=== PATIENT | male | born 1955 | race Caucasian/White ===

== ENCOUNTER 2019-09-11 17:41 | Emergency (ER) | payer BC, MEDICARE ==
[~2019-09-11] VITALS: Ht 182.9 cm; Wt 122.5 kg
[~2019-09-11 17:41] MED LIST: ATORVASTATIN CA40 MG PO; DOXEPIN HCL50 MG PO; LINZESS PO; METOCLOPRAMIDE10 MG PO; PANTOPRAZOLE SO40 MG PO; PROBIOTIC & AC1 EACH PO; [UNRECOGNIZED DRUG - OTHER] PO; cholesterol med PO; sleep med PO
--- OUTSIDE RECORDS SUMMARY | 2019-09-11 17:45 | XMS REPORT ---
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 Allergies, Adverse Reactions, Alerts Allergy Name Allergy Type Status Severity Reaction(s) Onset Date Inactive Date Treating Clinician Comments No Known Drug Intolerances DA Active U 2010-04-26 00:00:00 Medications This patient has no known medications. Results Test Description Test Time Test Comments Text Results Atomic Results Result Comments - XR UGI W/AIR W/O KUB 2019-05-26 09:16:00 FAX: Amos Morrissey MD [phone] Dora: St: REG Name: MURALI HAINES [facility] : 1955 Age/S: 63/M [address] Unit #: [id number] Loc: [place] [address] Phys: Amos Duarte MD Acct: [id number] Dis Date: Status: REG CLI PHONE #: [phone] Exam Date: 05/26/2019 0850 FAX #: [phone] Reason: K21.0 REFLUX DISEASE EXAMS: CPT CODE: [id number] XR UGI W/AIR W/O KUB 70389 TECHNIQUE - XR UGI W/AIR W/O KUB . COMPARISON: CT abdomen pelvis 11/29/2018 HISTORY: 63 years Male K21.0 REFLUX DISEASE FINDINGS: Double contrast upper GI series is performed. Tertiary contractions of the esophagus. Small sliding hiatal hernia. Mild gastroesophageal reflux. No evidence of esophageal stricture. Stomach is unremarkable. Duodenal bulb is normal. Second and third portion of the duodenum is normal. IMPRESSION: Small sliding hiatal hernia. Mild gastroesophageal reflux. Tertiary contractions of the esophagus. at 0916 Reported and signed by: Delmer Vargas M.D. CC: Amos Duarte MD Technologist: Kat Sethi RT(R); STUDENT TECHNOLOGIST Trnscrd Date/Time/By: 05/26/2019 (6194) : By: Екатерина Orig Print D/T: S: 05/26/2019 (4132) PAGE 1 Signed Report
--- NOTE | 2019-09-11 18:40 | Diagnostic Imaging Report ---
RIGHT ANKLE - 3 Image(s) HISTORY: Fall COMPARISON: None available. FINDINGS: Bones: A 4 mm ossific density adjacent to the dorsal neck of the talus and a 2 mm ossific density adjacent to the dorsal head of the talus. No aggressive osseous lesion. Small plantar calcaneal and dorsal calcaneal enthesophytes. Joints: Minimal degenerative changes of the talonavicular joint. The ankle mortise is symmetric. Soft tissues: Mild lateral soft tissue swelling. IMPRESSION: 1. Small ossific densities adjacent to the dorsal talus could reflect age-indeterminate avulsion fractures, correlate for focal point tenderness. 2. Mild nonspecific lateral soft tissue swelling. Signed by: Dr. Adriano iJmenez D.O., M.M.M. on 09/11/2019 6:36 PM
--- NOTE | 2019-09-11 18:43 | Diagnostic Imaging Report ---
RIGHT TIBIA AND FIBULA-2 IMAGE(S) RIGHT FOOT-3 VIEWS HISTORY: Fall COMPARISON: Right ankle radiographs from the same day. FINDINGS: Artifacts partially limit evaluation of the proximal tibia and fibula. Bones: A 4 mm ossific density adjacent to the dorsal neck of the talus and a 2 mm ossific density adjacent to the dorsal head of the talus. No aggressive osseous lesion. Small plantar calcaneal and dorsal calcaneal enthesophytes. Probable chronic healed fracture deformity of the proximal tibial diaphysis. Joints: Minimal degenerative changes of the talonavicular joint. The ankle mortise is symmetric. Mild hallux valgus deformity with associated minimal degenerative changes. Soft tissues: Mild lateral soft tissue swelling. IMPRESSION: 1. Small ossific densities adjacent to the dorsal talus could reflect age-indeterminate avulsion fractures, correlate for focal point tenderness. 2. Mild nonspecific lateral ankle soft tissue swelling. Signed by: Dr. Adriano Jimenez D.O., M.M.M. on 09/11/2019 6:39 PM
[2019-09-11 19:54] VITALS: BP 149/92
== END 2019-09-11 20:00 | disposition home or self-care (01) ==
LOC: ER 17:41
DX: S92.014A Nondisplaced fracture of body of right calcaneus, initial encounter for closed fracture (principal); X50.1XXA Overexertion from prolonged static or awkward postures, initial encounter; Y93.01 Activity, walking, marching and hiking; Y92.008 Other place in unspecified non-institutional (private) residence as the place of occurrence of the external cause; I10 Essential (primary) hypertension; E78.5 Hyperlipidemia, unspecified; K21.9 Gastro-esophageal reflux disease without esophagitis; F17.210 Nicotine dependence, cigarettes, uncomplicated
CPT/HCPCS: 99284